=== PATIENT | female | born 1980 | race Caucasian/White ===

== ENCOUNTER 2016-04-21 07:48 | Day surgery (SDC) | payer BC ==
[2016-04-18 11:40] LABS: BASOPHILS 0.6 %; BASOPHILS ABSOLUTE 0.05 10/3/uL (0.0-0.16); EOSINOPHILS 2.4 %; EOSINOPHILS ABSOLUTE 0.22 10/3/uL (0.0-0.53); HEMATOCRIT 41.4 % (36.0-48.0); HEMOGLOBIN 13.9 g/dL (12.0-16.0); IMMATURE GRANULOCYTES 0.2 %; IMMATURE GRANULOCYTES ABSOLUTE 0.02 10/3/uL (0.0-0.11); LYMPHOCYTES 27.2 %; LYMPHOCYTES ABSOLUTE 2.47 10/3/uL (0.67-4.30); MEAN CORPUS HGB CONC 33.6 g/dL (32.0-36.0); MEAN CORPUSCULAR VOLUME 89.4 fL (80-100); MEAN PLATELET VOLUME 8.9 fL (9.2-13.0); MONOCYTES 7.8 %; MONOCYTES ABSOLUTE 0.71 10/3/uL (0.21-1.20); NEUTROPHILS 61.8 %; NEUTROPHILS ABSOLUTE 5.61 10/3/uL (2.02-8.40); PLATELET COUNT 355 10/3/uL (150-400); RBC DISTRIBUTION WIDTH 12.8 % (12.0-16.0); RED CELL COUNT 4.63 10/6/uL (4.0-5.6); WHITE BLOOD CELLS 9.1 10/3/uL (4.5-10.5)
[2016-04-18 11:41] LABS: MANUAL DIFF NO %
[2016-04-18 12:02] LABS: A/G RATIO 1.2 (0.7-1.9); ALBUMIN 3.5 G/DL (3.5-5.0); ALKALINE PHOSPHATASE 93 U/L (45-117); CALCIUM, SERUM 9.1 MG/DL (8.5-10.4); CHLORIDE, SERUM 107 MMOL/L (96-112); CO2 (CARBON DIOXIDE) 27 MMOL/L (24-34); CREATININE 0.72 MG/DL (0.55-1.02); GFR AFRICAN AMERICAN 125 ML/MIN (>=60); GFR NON AFRICAN AMERICAN 108 ML/MIN (>=60); GLUCOSE, SERUM 81 MG/DL (60-99); POTASSIUM, SERUM 4.4 MMOL/L (3.5-5.3); SGOT(AST) 6 U/L (5-40); SGPT(ALT) 18 U/L (5-65); SODIUM, SERUM 143 MMOL/L (135-148); TOTAL BILIRUBIN 0.3 MG/DL (0-1.2); TOTAL PROTEIN 6.4 G/DL (6.0-8.5)
[2016-04-18 12:07] LABS: BUN (BLOOD UREA NITROGEN) 7 MG/DL (6-23); GLOBULIN 2.9 G/DL (2.5-4.1)
--- NOTE | ~2016-04-21 | OP ---
Record Of Operation [facility] [address] [place]. [address] NAME: LOUIE KITCHEN : 78 STATUS : [facility]#: [id number] AGE: 35 ADM/REG DATE : 04/21/16 MR#: [id number] REPORT SERV DATE: 04/23/16 DICTATED BY: KOJO FARIA DATE: 04/23/16 REPORT STATUS : Draft TRANSCRIBED BY: MODL DATE: 04/23/16 DATE OF PROCEDURE: 04/21/2016 PREOPERATIVE DIAGNOSIS: Biliary dyskinesia. POSTOPERATIVE DIAGNOSES: Biliary dyskinesia plus chronic cholecystitis. PROCEDURE PERFORMED: Laparoscopic cholecystectomy. SURGEON: Kojo Faria M.D. ANESTHESIA: General. ESTIMATED BLOOD LOSS: Minimal. SPECIMEN REMOVED: One gallbladder. BRIEF HISTORY: Ms. Kitchen is a 35-year-old female, who presents for recurrent bouts of epigastric and right upper quadrant abdominal pain. Outpatient imaging did not show any evidence of gallstones, however, HIDA scan demonstrated depressed gallbladder ejection fraction and she had reproduction of her symptoms. After CCK administration, she presents today for cholecystectomy. FINDINGS AT THE TIME OF PROCEDURE: Ms. Kitchen's gallbladder was pale and distended and chronically inflamed. Limited examination of her liver, stomach, small and large bowel revealed no other obvious abnormalities. DETAILS OF PROCEDURE: Following informed consent, the patient was taken to the operating room and placed supine on the OR table. After successful induction of general endotracheal anesthesia, her abdomen was prepped and draped in usual sterile fashion. An umbilical skin incision was made and skin hooks were used to elevate the skin edges and anterior rectus fascia. There was a small umbilical hernia defect, and we were able to use this as a portal of entry into the abdominal cavity. A non-bladed 5 mm trocar was then inserted through this orifice and connected to insufflation tubing, and the peritoneal cavity was insufflated with carbon dioxide to a resting pressure of 15 mmHg. A 5 mm laparoscope was then introduced. The underlying bowel and vascular structures were carefully inspected and noted to be free from injury from initial trocar insertion. Three additional trocars were placed under direct visualization, a 10 mm subxiphoid epigastric trocar followed by two 5 mm trocars placed in the right upper quadrant. The gallbladder was grasped at its fundus and retracted in lateral and cephalad direction toward the patient's right shoulder blade. The infundibulum of the gallbladder was grasped and retracted inferiorly and laterally toward the patient's right anterior superior iliac spine. Cystic duct and cystic artery were dissected free from the underlying fatty peritoneal structures and once a critical view of safety was obtained and both these structures were seen to clearly transverse into the infundibulum of the gallbladder, they were both triply clipped and ligated, and divided with scissors. The gallbladder was then dissected free from the gallbladder fossa using blunt Record Of Operation [address] [address] NAME: LOUIE KITCHEN : 78 STATUS : [facility] PAT#: [id number] AGE: 35 ADM/REG DATE : 04/21/16 MR#: [id number] REPORT SERV DATE: 04/23/16 DICTATED BY: KOJO FARIA DATE: 04/23/16 REPORT STATUS : Draft TRANSCRIBED BY: MESFIN DATE: 04/23/16 dissection and cautery. It was placed inside an endoscopic retrieval pouch and removed from the 10 mm trocar site, intact, and without incident. Gallbladder fossa was copiously irrigated. Hemostasis was secured with cautery and there was no evidence of bile leakage from the gallbladder fossa or cystic duct stump. The two 5 mm trocars were removed followed by the 10 mm subxiphoid trocar. The sites were observed. Hemostasis was found to be secured. The peritoneal cavity was desufflated. Laparoscope was removed. Fascia at the 10 mm umbilical trocars were approximated using 0 Vicryl suture. Skin edges of all four incisions were approximated using 4-0 Monocryl subcuticular suture and Dermabond. At the completion of the case, all sponge and needle counts were correct. The patient was extubated and transferred to recovery room in satisfactory condition, having suffered no apparent perioperative complications. CHLOÉ/MESFIN Kojo Faria M.D. / [id number] CC: Christa Lundy M.D.
[~2016-04-21 07:48] MED LIST: *DENIES
== END 2016-04-21 13:40 | disposition home or self-care (01) ==
LOC: SDC 07:48
PROVIDERS: Surgery
PROC: 0FT44ZZ Resection of Gallbladder, Percutaneous Endoscopic Approach (ICD-10-PCS; principal; 2016-04-21 09:30)
DX: K80.10 Calculus of gallbladder with chronic cholecystitis without obstruction (principal); G47.33 Obstructive sleep apnea (adult) (pediatric); J45.909 Unspecified asthma, uncomplicated; E66.01 Morbid (severe) obesity due to excess calories; F41.9 Anxiety disorder, unspecified; F32.9 Major depressive disorder, single episode, unspecified; Z68.42 Body mass index [BMI] 45.0-49.9, adult; Z98.51 Tubal ligation status
CPT/HCPCS: 80053; 84703; 85025; 88304; A9270-GY; J0330; J0690; J2250; J2405; J2550; J2710; J3010; Q9967